=== PATIENT | male | born 1950 | race Caucasian/White ===

== ENCOUNTER 2017-01-24 16:08 | Emergency (ER) | payer BC ==
[~2017-01-24] VITALS: Ht 180.3 cm; Wt 87.1 kg
[2017-01-24 16:15] VITALS: TEMP 36.6; Ht 180.3 cm; Wt 87.1 kg
[2017-01-24] MEDS ORDERED: XYLOCAINE 1%/SOD BICARB 20 ML VIAL INFIL ONE (16:30)
[2017-01-24] MEDS ORDERED: VGR25 PO (16:34)
[2017-01-24] MEDS ORDERED: ASPI81TA28 PO (16:34)
[2017-01-24 17:12] VITALS: BP 129/78; PULSE 66; O2SAT 94
--- NOTE | 2017-01-24 19:18 | EMERGENCY ROOM VISIT NOTE ---
ED Visit Note First contact with patient: 16:25 Chief Complaint: I cut my left hand. History of Present Illness: Mr. Sheehan is a 67-year-old white male who ambulates into the ED accompanied by his complaining of left hand laceration. Patient reports approximately one hour before he arrived in the emergency department he was trimming a tree with a sharp sore. After cutting off a branch of the tree the soft and struck his left hand and he sustained a laceration. Prior to arrival at the emergency department he control bleeding but did not wash the wound. He denies any symptoms at this time except for the laceration including pain in the area the laceration, uncontrolled bleeding, other hand pain, hand weakness/ numbness/tingling. Review of Systems: As noted above in history of present illness. Past Medical History: Unspecified skin disorder, kidney stones unspecified bleeding disorder. Current Medications: Aspirin, Viagra. Allergies to Medications: Patient denies. Social History: Patient is currently retired; he feels safe in his home environment; he denies tobacco use; he admits to social alcohol use. Tetanus Immunization Status: May 2008. Physical Examination: Vital Signs: Date Time Temp Pulse Resp B/P (MAP) Pulse Ox O2 Delivery O2 Flow Rate FiO2 01/24/17 17:12 66 18 129/78 94 01/24/17 16:15 36.6 63 18 125/79 94 Room Air GENERAL: 67-year-old male in no acute distress, nontoxic-appearing, afebrile and hemodynamically stable. NEUROLOGICAL: Awake, alert and oriented to person, place and time. Answering questions appropriately and following commands. Normal gait. Good hand eye coordination. No focal motor or sensory deficits. SKIN: Warm, dry and pink. Left Hand: At the proximal base of the medial aspect of the thenar eminence patient has a 1.8 cm full-thickness laceration. No active bleeding. LEFT HAND: Soft tissue injury as noted above in SKIN. No gross bony deformity. Minimal tenderness over his laceration. Full range of motion in flexion, extension and radial and ulnar deviation of the wrist, flexion, extension and abduction and abduction of the thumb against resistance.. Throughout the hand and thumb the skin was warm and pink and capillary refill is brisk. He is able to distinguish light sensations through all dermatomes. ED Course: Patient is assessed as noted above. Patient's medication list was reviewed. Wound Repair: Complexity: Basic Verbal consent was obtained after the risks and benefits were explained. The skin was prepped with betadine and a sterile field set. Wound edges of the wound was anesthetized with 2.4 ml buffered 1% lidocaine. The wound was explored for foreign bodies and none found. Copious irrigation was performed using sterile saline. With direct pressure the bleeding subsided. Debridement was not performed. The wound edges were approximated using 5-0 Ethilon with 5 simple interrupted sutures. Hemostasis and excellent approximation was achieved. Antibacterial ointment and a sterile dressing applied. No complications and the patient tolerated the procedure well. Patient was educated about tonight's findings and instructed on his treatment plan; he verbalizes understanding and agreement with this plan. Clinical Impression: Laceration of the left hand. Disposition: Patient discharged home in stable condition; prior to departure he was reassessed and subjectively reported he was pain-free. Plan: Comfort measures, wound care, and signs of infection were discussed with the patient. Patient was encouraged to follow-up with PCP or return to the ED for signs of infection and/or suture removal in 10-12 days.
== END 2017-01-24 17:13 | disposition home or self-care (01) ==
LOC: C.EDB 16:09 → C.EDD 17:13
DX: S61.412A Laceration without foreign body of left hand, initial encounter (principal); W22.8XXA Striking against or struck by other objects, initial encounter; Z87.442 Personal history of urinary calculi; Z87.2 Personal history of diseases of the skin and subcutaneous tissue; Z79.82 Long term (current) use of aspirin; Z79.899 Other long term (current) drug therapy

== ENCOUNTER → 2018-03-16 | Outpatient (CLI) | payer BC ==
[~2018-03-16] MED LIST: ASPI81TA28 PO; VGR25 PO
--- NOTE | 2018-03-16 09:28 | DIAGNOSTIC IMAGING REPORT ---
L PELVIS/UNILATERAL HIP 2-3VIEWS CLINICAL HISTORY: Left hip pain. COMPARISON: None FINDINGS: Sacroiliac joints and symphysis pubis are intact. There is no acute fracture within the pelvis or hips. There is mild joint space narrowing and osteophytosis of both hips. There is no evidence for avascular necrosis. IMPRESSION: 1. No acute fracture within the pelvis or hips. 2. Mild osteoarthritis of the left hip. Electronically signed by: Jalil Bush M.D. 03/16/2018 9:26 AM Dictated Date/Time: 03/16/2018 9:25 AM
== END | disposition home or self-care (01) ==
LOC: C.RAD1850 09:07
PROVIDERS: ATTEND Student in an Organized Health Care Education/Training Program
DX: M25.552 Pain in left hip (principal); R10.30 Lower abdominal pain, unspecified; Z88.8 Allergy status to other drugs, medicaments and biological substances; Z91.030 Bee allergy status